=== PATIENT | female | born 1990 | race Caucasian/White ===

== ENCOUNTER → 2021-04-14 | Outpatient (CLI) | payer MEDICAID ==
[2021-04-14 14:33] LABS: Basophils % (A) 1 %; Eosinophils # (A) 0.1 k/uL (0-0.7); Eosinophils % (A) 1 %; HGB 13.2 gm/dL (11.4-16.0); Lymphocytes # (A) 1.4 k/uL (1.0-4.8); Lymphocytes % (A) 16 %; MCH 31.6 pg (25.0-35.0); MCHC 33.8 g/dL (31.0-37.0); MCV 93.4 fL (80.0-100.0); Mean Platelet Volume 6.9; Monocytes # (A) 0.5 k/uL (0-1.0); Monocytes % (A) 5 %; Neutrophils # (A) 6.6 k/uL (1.3-7.7); Neutrophils % (A) 75 %; Platelet Count 286 k/uL (150-450); RBC 4.17 m/uL (3.80-5.40); RDW 13.5 % (11.5-15.5); WBC 8.8 k/uL (3.8-10.6)
== END | disposition home or self-care (01) ==
LOC: LABPAT 13:42
PROVIDERS: ATTEND Obstetrics & Gynecology
DX: Z01.812 Encounter for preprocedural laboratory examination (principal); O02.1 Missed abortion
CPT/HCPCS: 36415; 85025; 86850; 86900; 86901

== ENCOUNTER 2021-04-16 06:13 | Day surgery (SDC) | payer MEDICAID ==
[2021-04-14 15:17] VITALS: BMI 24.1
[~2021-04-16 06:13] MED LIST: Pre Op ABX Message 1 EACH MISC MISCELLANE ONE
[2021-04-16] MEDS ORDERED: ONDANSETRON 4 MG/2 ML VIAL ONE (06:43)
[2021-04-16] MEDS ORDERED: LACTATED RINGERS 1,000 ML IV ONE (06:47)
[2021-04-16] MEDS ORDERED: ONDANSETRON 4 MG/2 ML VIAL IVP ONE (06:49)
[2021-04-16] MEDS ORDERED: SCOPOLAMINE 1.5MG/72HR PATCH TRANSDERM ONE (06:50)
[2021-04-16] MEDS ORDERED: DEXAMETHASONE SOD PHOSPHATE 4 MG/ML 1 ML VIAL IVP ONE (06:50)
[2021-04-16] MEDS ORDERED: KETOROLAC 15 MG/ML 1 ML VIAL ONE (07:20)
[2021-04-16] MEDS ORDERED: fentaNYL (PF) 50 MCG/ML 2 ML AMP ONE (07:20)
[2021-04-16] MEDS ORDERED: LIDOCAINE 1% INJ 10MG/ML (20 ML MDV) ONE (07:20)
[2021-04-16] MEDS ORDERED: MIDAZOLAM 2 MG/2 ML VIAL ONE (07:20)
[2021-04-16] MEDS ORDERED: PROPOFOL 10 MG/ML 20 ML VIAL IV ONE (07:20)
[2021-04-16 07:54] VITALS: TEMP 97.3
--- NOTE | 2021-04-16 08:01 | P.OP ---
Date of Procedure: 04/16/21 Preoperative Diagnosis: Missed Ab, blood type A+. Postoperative Diagnosis: Same Procedure(s) Performed: Suction D&C Anesthesia: BIBI Surgeon: Kell Galo Estimated Blood Loss (ml): 100 IV fluids (ml): 500 Urine output (ml): 150 Pathology: other (Products of conception) Condition: stable Disposition: PACU Description of Procedure: Patient is brought to the operating suite where a general anesthetic is administered without difficulty. She's placed in the dorsal lithotomy position. The appropriate timeout is performed to assure proper patient and procedural identification. Blood type is A+. The cervix, vagina, perineal bodies are all prepped and draped in usual sterile fashion. Examination under anesthesia reveals an anteverted uterus, adnexa are negative bilaterally. Bladder is drained for approximately 150 mL of clear yellow urine. Weighted speculum was placed into the vagina. Anterior lip of the cervix is grasped with a double-tooth tenaculum. Cervix allows the uterine sound, sound is 8 cm in the anteverted position. Cervix is then gently and systematically dilated using Hanks dilators. A #8 curved curet is placed to the dome of the fundus and under appropriate suction pressures the uterine cavity is curettaged thoroughly. A medium sharp curette is used to assure that there are no retained products of conception. The suction curet is once again placed, the cavity is clean and dry. Anterior lip of the cervix is also clean and dry. All sponge needle and enhancement counts are correct. Patient is brought back to recovery room in very good condition. Toradol is given prior to leaving the operative suite. Vital signs are stable, blood pressure 124/76, pulse 64, 100% O2 saturation. She'll follow-up with me in the office in 2 weeks.
[2021-04-16 08:45] VITALS: RESP 18
[2021-04-16 09:07] VITALS: BP 122/76; PULSE 78
== END 2021-04-16 09:07 | disposition home or self-care (01) ==
LOC: OR 06:13
PROVIDERS: ATTEND Obstetrics & Gynecology
DX: O02.1 Missed abortion (principal); N85.4 Malposition of uterus; Z82.5 Family history of asthma and other chronic lower respiratory diseases; Z82.49 Family history of ischemic heart disease and other diseases of the circulatory system; Z82.3 Family history of stroke; Z83.438 Family history of other disorder of lipoprotein metabolism and other lipidemia; Z83.3 Family history of diabetes mellitus
CPT/HCPCS: 86900; 86901; 88305; 86850; 59820; J2250; J1100; J2405; J2001; J3010; J1885; J2704

== ENCOUNTER 2021-08-29 11:01 | Emergency (ER) | payer MEDICAID ==
[2021-08-29 11:36] VITALS: TEMP 98.7
[2021-08-29] MEDS ORDERED: BAMLANIVIMAB (EUA) 700 MG, ETESEVIMAB (EUA) 1,400 MG in SODIUM CHLORIDE 0.9% 50 ML IVPB ONE (13:00)
[2021-08-29] MEDS ORDERED: methylPREDNISolone SOD SUCCI 125 MG/2 ML VIAL IV STA (13:04)
[2021-08-29] MEDS ORDERED: diphenhydrAMINE 50 MG/ML 1 ML VIAL IVP STA (13:04)
[2021-08-29] MEDS ORDERED: SODIUM CHLORIDE 0.9% 50 ML IVPB ONE (13:30)
--- NOTE | 2021-08-29 13:32 | ED ---
URI HPI - General Chief Complaint: Upper Respiratory Infection Stated Complaint: Covid test/antibodies Time Seen by Provider: 08/29/21 11:04 Source: patient, RN notes reviewed Mode of arrival: ambulatory Limitations: no limitations - History of Present Illness Initial Comments: 31-year-old female presents emergency from chief complaint covid 19 positive. She states she started symptoms 2 days ago tested positive at home. Patient states her significant other is also positive. Patient offers complaints of nasal congestion cough mild shortness breath headache bodyaches no other symptoms. - Related Data Home Medications Medication Instructions Recorded Confirmed Acetaminophen Tab [Tylenol Tab] 1,000 mg PO Q6HR PRN 08/29/21 08/29/21 Allergies Allergy/AdvReac Type Severity Reaction Status Date / Time No Known Allergies Allergy Verified 08/29/21 11:54 Review of Systems ROS Statement: Those systems with pertinent positive or pertinent negative responses have been documented in the HPI. ROS Other: All systems not noted in ROS Statement are negative. Past Medical History Past Medical History: No Reported History Additional Past Medical History / Comment(s): Missed . History of Any Multi-Drug Resistant Organisms: None Reported Past Surgical History: No Surgical Hx Reported Additional Past Surgical History / Comment(s): d&c Past Anesthesia/Blood Transfusion Reactions: No Reported Reaction Additional Past Anesthesia/Blood Transfusion Reaction / Comment(s): Has never had general anesthesia. Past Psychological History: Depression Smoking Status: Never smoker Past Alcohol Use History: Occasional Past Drug Use History: None Reported - Past Family History Father Family Medical History: Cancer Additional Family Medical History / Comment(s): Testicular Cancer. General Exam Limitations: no limitations General appearance: alert, in no apparent distress Head exam: Present: atraumatic, normocephalic, normal inspection Eye exam: Present: normal appearance, PERRL, EOMI. Absent: scleral icterus, conjunctival injection, periorbital swelling ENT exam: Present: normal exam, mucous membranes moist Neck exam: Present: normal inspection, full ROM. Absent: tenderness, meningismus, lymphadenopathy Respiratory exam: Present: normal lung sounds bilaterally. Absent: respiratory distress, wheezes, rales, rhonchi, stridor Cardiovascular Exam: Present: regular rate, normal rhythm, normal heart sounds. Absent: systolic murmur, diastolic murmur, rubs, gallop, clicks GI/Abdominal exam: Present: soft, normal bowel sounds. Absent: distended, tenderness, guarding, rebound, rigid Course Vital Signs 08/29/21 08/29/21 11:33 13:05 Temperature 98.7 F Pulse Rate 90 106 H Respiratory 18 20 Rate Blood Pressure 121/78 142/105 O2 Sat by Pulse 99 94 L Oximetry Medical Decision Making - Medical Decision Making Patient is COVID-19 positive she was receiving monoclonal antibodies and did have mild reaction. She was given Solu-Medrol and Benadryl. Patient will be discharged in stable condition return parameters were discussed. - Lab Data Lab Results 08/29/21 Range/Units 11:40 Coronavirus (PCR) Detected A (Not Detectd) Disposition Clinical Impression: COVID-19 Disposition: HOME SELF-CARE Condition: Stable Instructions (If sedation given, give patient instructions): Coronavirus Disease 2019 (COVID-19) Additional Instructions: Please return to the Emergency Department if symptoms worsen or any other concerns. Is patient prescribed a controlled substance at d/c from ED?: No Referrals: None,Stated [Primary Care Provider] - 1-2 days Time of Disposition: 13:32
[2021-08-29 13:42] VITALS: BP 123/81; PULSE 73; RESP 16
== END 2021-08-29 14:43 | disposition home or self-care (01) ==
LOC: EC 11:01
DX: U07.1 COVID-19 (principal)
CPT/HCPCS: 87635; 99283; 96374; 96375; J1200; J2930; J3490

== ENCOUNTER 2021-09-26 19:14 | Emergency (ER) | payer MEDICAID ==
[2021-09-26 20:16] VITALS: BP 121/72; PULSE 66; RESP 20; TEMP 97.4
--- NOTE | 2021-09-26 20:26 | ED ---
Skin/Abscess/FB HPI - General Chief complaint: Needlestick/Exposure Stated complaint: [facility]-Needle stick Time Seen by Provider: 09/26/21 20:19 Source: patient Mode of arrival: ambulatory - History of Present Illness Initial comments: 31 year-old female patient presents for evaluation after sustaining needlestick injury. States she accidently stuck herself with an insulin needle after injecting a patient. States this occurred around 6pm. Denies significant injury. She did wash and cleanse the wound. She is up to date on tetanus and hep B vaccine. Denies chance of . Source blood was brought in for testing. States she did look through the patient's history and there is no known communicable diseases. - Related Data Home Medications Medication Instructions Recorded Confirmed Acetaminophen Tab [Tylenol Tab] 1,000 mg PO Q6HR PRN 08/29/21 08/29/21 Allergies Allergy/AdvReac Type Severity Reaction Status Date / Time casirivimab ([id number]) AdvReac Rash/Hives Verified 09/26/21 20:27 [From REGEN-COV (EUA)] imdevimab ([id number]) AdvReac Rash/Hives Verified 09/26/21 20:27 [From REGEN-COV (EUA)] Review of Systems ROS Statement: Those systems with pertinent positive or pertinent negative responses have been documented in the HPI. ROS Other: All systems not noted in ROS Statement are negative. Past Medical History Past Medical History: No Reported History Additional Past Medical History / Comment(s): Missed . History of Any Multi-Drug Resistant Organisms: None Reported Past Surgical History: No Surgical Hx Reported Additional Past Surgical History / Comment(s): d&c Past Anesthesia/Blood Transfusion Reactions: No Reported Reaction Additional Past Anesthesia/Blood Transfusion Reaction / Comment(s): Has never had general anesthesia. Past Psychological History: No Psychological Hx Reported Smoking Status: Never smoker Past Alcohol Use History: Occasional Past Drug Use History: None Reported - Past Family History Father Family Medical History: Cancer Additional Family Medical History / Comment(s): Testicular Cancer. General Exam General appearance: alert, in no apparent distress, other (This is a well- developed, well-nourished adult female in no acute distress.) Eye exam: Present: normal appearance, PERRL, EOMI. Absent: scleral icterus, conjunctival injection, periorbital swelling ENT exam: Present: normal exam, normal oropharynx, mucous membranes moist Respiratory exam: Present: normal lung sounds bilaterally. Absent: respiratory distress, wheezes, rales, rhonchi, stridor Cardiovascular Exam: Present: regular rate, normal rhythm, normal heart sounds. Absent: systolic murmur, diastolic murmur, rubs, gallop, clicks GI/Abdominal exam: Present: soft, normal bowel sounds. Absent: distended, tenderness, guarding, rebound, rigid Neurological exam: Present: alert, oriented X3, CN II-XII intact Psychiatric exam: Present: normal affect, normal mood Skin exam: Present: warm, dry, intact, normal color. Absent: rash Course Vital Signs 09/26/21 20:11 Temperature 97.4 F L Pulse Rate 66 Respiratory 20 Rate Blood Pressure 121/72 O2 Sat by Pulse 99 Oximetry Medical Decision Making - Medical Decision Making 31-year-old female patient presents to the emergency department today for evaluation after needlestick injury. Physical examination unremarkable. Blood was drawn. She'll be discharged follow up with employee health services as soon as possible. Return parameters were discussed in detail. She verbalizes understanding and agrees with this plan. My attending is Dr. Smith. Disposition Clinical Impression: Needlestick injury accident Disposition: HOME SELF-CARE Condition: Good Instructions (If sedation given, give patient instructions): Body Substance Exposure (ED) Additional Instructions: Await results of source testing. Follow-up with employee health services as soon as possible. Keep area clean and dry. Return for any new, worsening, or concerning symptoms. Is patient prescribed a controlled substance at d/c from ED?: No Referrals: None,Stated [Primary Care Provider] - 1-2 days Time of Disposition: 20:26
== END 2021-09-26 20:59 | disposition home or self-care (01) ==
LOC: EC 19:14
DX: S89.92XA Unspecified injury of left lower leg, initial encounter (principal); W46.1XXA Contact with contaminated hypodermic needle, initial encounter; Y92.89 Other specified places as the place of occurrence of the external cause; Y93.89 Activity, other specified; Z88.8 Allergy status to other drugs, medicaments and biological substances
CPT/HCPCS: 99283